=== PATIENT | male | born 1960 | race Caucasian/White ===

== ENCOUNTER 2020-12-08 15:17 | Emergency (ER) | payer OTHER ==
[~2020-12-08] VITALS: Ht 180.3 cm; Wt 127.0 kg
[2020-12-08] MEDS ORDERED: THIAMINE 100mg/ml INJ (200mg/2ml VIAL) IV ONE (17:00)
[2020-12-08] MEDS ORDERED: SODIUM CHLORIDE 0.9% 1,000 ML IV ONE ×2 (17:00)
[2020-12-08] MEDS ORDERED: LABETALOL HCL 5 MG/ML 4ML SYRINGE IV ONE (19:30)
[2020-12-08 20:35] VITALS: BP 140/88
== END 2020-12-08 22:50 | disposition home or self-care (01) ==
LOC: ER 15:17 → EDBD 15:17 → ER 22:50
DX: S02.2XXA Fracture of nasal bones, initial encounter for closed fracture (principal); I10 Essential (primary) hypertension; R78.0 Finding of alcohol in blood; V43.52XA Car driver injured in collision with other type car in traffic accident, initial encounter; Y93.89 Activity, other specified; Y92.89 Other specified places as the place of occurrence of the external cause; Y99.8 Other external cause status; Y90.7 Blood alcohol level of 200-239 mg/100 ml
CPT/HCPCS: 36415; 70450; 70486; 71045; 80320; 96361; 96374; 96375; 99285; J3411; J3490; J7030

== ENCOUNTER 2021-09-12 13:21 | Emergency (ER) | payer MEDICAID ==
[~2021-09-12] VITALS: Ht 182.9 cm; Wt 117.9 kg
[2021-09-12 14:24] VITALS: BP 150/100
[2021-09-12 15:04] LABS: Basophils # (auto) 0.1 10 ^3/uL (0-0.2); Eosinophils # (auto) 0.2 10 ^3/uL (0-0.8); Mean Corpuscular Volume 81.2 fL (80.0-100.0)
[2021-09-12 15:05] LABS: Eosinophils % (auto) 1.4 % (0.0-7.0); Hematocrit 43.1 % (41.0-53.0); Hemoglobin 14.5 g/dL (13.5-17.5); Lymphocytes # (auto) 1.7 10 ^3/uL (0.4-5.4); Lymphocytes % (auto) 15.8 % (10.0-50.0); Mean Corpuscular Hemoglobin 27.3 pg (28.0-32.0); Mean Corpuscular Hgb Conc. 33.6 g/dL (32.0-36.0); Monocytes # (auto) 0.9 10 ^3/uL (0-1.3); Monocytes % (auto) 8.8 % (0.0-12.0); Neutrophils # (auto) 7.8 10 ^3/uL (1.6-8.6); Red Blood Cells 5.31 10^6/uL (4.5-5.90); White Blood Cell 10.8 10^3/uL (4.4-10.8)
[2021-09-12 15:14] LABS: Albumin 3.9 g/dL (3.4-5.0); Potassium 4.7 mmol/L (3.5-5.1)
[2021-09-12 15:17] LABS: BUN/Creatinine Ratio 13.9; Bilirubin, Total 0.4 mg/dL (0.2-1.0); Total Protein 8.8 g/dL (6.4-8.2)
[2021-09-12 16:45] LABS: INR 1.06 (0.9-1.15)
[2021-09-12] MEDS ORDERED: HYDR-5192 EX (20:48)
== END 2021-09-12 22:13 | disposition home or self-care (01) ==
LOC: ER 13:21
DX: K92.2 Gastrointestinal hemorrhage, unspecified (principal); K85.90 Acute pancreatitis without necrosis or infection, unspecified
CPT/HCPCS: 36415; 74175; 80053; 83605; 83690; 84484; 85025; 85610; 93005

== ENCOUNTER → 2024-02-12 | Outpatient (CLI) | payer OTHER, MEDICAID ==
[~2024-02-12] MED LIST: ALBUTEROL SULF 2.5 MG/0.5ML(0.5%) NEB SOLN ONE; HYDR-5192 EX
--- NOTE | 2024-02-16 13:53 | DVHNC2 ---
Procedure - February 12, 2024 6 minute walk test interpretation. Completed 6 minutes of ambulation. Moderate reduction in distance walk. Expected heart rate achieved. No significant desaturations with exertion. YULI HODGES RESIDENT Feb 16, 2024 13:53
--- NOTE | 2024-02-16 13:56 | DVHNC2 ---
Procedure - Pulmonary function test interpretation February 12, 2024 Severe restrictive ventilatory defect. No significant bronchodilator response. Total lung capacity is 65% of predicted, below normal limits (4.62 L). Diffusion capacity is moderately reduced, not corrected for patient's hemoglobin. 59% of predicted. YULI HODGES RESIDENT Feb 16, 2024 13:56
== END | disposition home or self-care (01) ==
LOC: RT 08:11
PROVIDERS: ATTEND Internal Medicine Pulmonary Disease
DX: R06.00 Dyspnea, unspecified (principal); Z87.891 Personal history of nicotine dependence
CPT/HCPCS: 94060; 94618; 94727; 94729

== ENCOUNTER 2024-06-28 03:12 | Inpatient (IN) | payer OTHER, MEDICAID ==
[2024-06-28] VITALS (7 sets, daily range): BP systolic 119–143; BP diastolic 78–81; PULSE 17–85; RESP 16–20; TEMP 97.8–98.4; O2SAT 94–97
[~2024-06-28] VITALS: Ht 182.9 cm; Wt 126.4 kg
[~2024-06-28 03:12] MED LIST changes: -ALBUTEROL SULF 2.5 MG/0.5ML(0.5%) NEB SOLN ONE
--- NOTE | 2024-06-28 03:25 | ED.PDOC ---
History of Present Illness HPI Comments 63-year-old male with PMHx HTN brought in by EMS presents with a chief complaint of SOB and SVT. Per EMS, patient called EMS after feeling SOB for the past 20 minutes. Patient was found to be in SVT in the 160s. Per EMS, bed rubber was unable to get an IV established and instead gave 5mg Versed IM and shocked patient at 70 joules. Patient was converted to NSR. Patient was also initially hypotensive for EMS at 88/57. No other symptoms or modifying factors present at this time. 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 ) Past Medical History PAST MEDICAL HISTORY: Denies Surgical History: Denies all surgeries Family History Family History: Unknown Social History Smoker: Non-Smoker Alcohol: Occasionally Drugs: Denies Drug Use Lives In: Home Constitutional: denies: chills, diaphoresis, fatigue, fever, malaise, sweats, weakness, others EENTM: denies: blurred vision, double vision, ear bleeding, ear discharge, ear drainage, ear pain, ear ringing, eye pain, eye redness, hearing loss, mouth pain, mouth swelling, nasal discharge, nose bleeding, nose congestion, nose pain, photophobia, tearing, throat pain, throat swelling, voice changes, others Respiratory: reports: shortness of breath; denies: cough, hemoptysis, orthopnea, SOB at rest, SOB with excertion, stridor, wheezing, others Cardiovascular: denies: chest pain, dizzy spells, diaphoresis, Dyspnea on exertion, edema, irregular heart beat, left arm pain, lightheadedness, palpitations, PND, syncope, others Gastrointestinal: denies: abdomen distended, abdominal pain, blood streaked bowels, constipated, diarrhea, dysphagia, difficulty swallowing, hematemesis, melena, nausea, poor appetite, poor fluid intake, rectal bleeding, rectal pain, vomiting, others Genitourinary: denies: burning, dysuria, flank pain, frequency, hematuria, incontinence, penile discharge, penile sore, pain, testicle pain, testicle swelling, urgency, others Neurological: denies: dizziness, fainting, headache, left sided numbness, left sided weakness, numbness, paresthesia, pre-existing deficit, right sided numbness, right sided weakness, seizure, speech problems, tingling, tremors, weakness, others Musculoskeletal: denies: back pain, gout, joint pain, joint swelling, muscle pain, muscle stiffness, neck pain, others Integumetry: denies: bruises, change in color, change in hair/nails, dryness, laceration, lesions, lumps, rash, wounds, others Allergic/Immunocompromised: denies: Difficulty Healing, Frequent Infections, Hives, Itching, others Hematologic/Lymphatic: denies: anemia, blood clots, easy bleeding, easy bruising, swollen glands, others Endocrine: denies: excessive hunger, excessive sweating, excessive thirst, excessive urination, flushing, intolerance to cold, intolerance to heat, unexplained weight gain, unexplained weight loss, others Psychiatric: denies: anxiety, bipolar disorder, depression, hopeless, panic disorder, schizophrenia, sleepless, suicidal, others All Other Systems: Reviewed and Negative Physical Exam General Appearance: No Apparent Distress, Normal HEENT: Normal ENT Inspection, Pharynx Normal, TMs Normal Neck: Full Range of Motion, Non-Tender, Normal, Normal Inspection Respiratory: Chest Non-Tender, Lungs Clear, No Accessory Muscle Use, No Respiratory Distress, Normal Breath Sounds Cardiovascular: No Edema, No JVD, No Murmur, No Gallop, Normal Peripheral Pulses, Regular Rate/Rhythm Breast Exam: Deferred Gastrointestinal: No Organomegaly, Non Tender, No Pulsatile Mass, Normal Bowel Sounds, Soft Genitalia: Deferred Pelvic: Deferred Rectal: Deferred Extremities: No calf tenderness, Normal capillary refill, Normal inspection, Normal range of motion, Non-tender, No pedal edema Musculoskeletal : Apperance: Normal Neurologic: Alert, side gluer II-XII nml as Tested, No Motor Deficits, Normal Affect, Normal Mood, No Sensory Deficits Cerebellar Function: Normal Reflexes: Normal Skin: Dry, Normal Color, Warm Lymphatic: No Adenopathy Was a procedure done? Was a procedure done?: No Differential Dx Considerations may include: ACS, cardiac arrhythmia, electrolyte abnormality, infectious etiology X-Ray, Labs, Meds, VS Vital Signs Date Time Temp Pulse Resp B/P (MAP) Pulse Ox O2 Delivery O2 Flow Rate FiO2 06/28/24 03:51 98.9 98 18 105/66 (79) 96 98.9 06/28/24 03:24 98.3 98 14 112/72 (85) 94 98.3 06/28/24 03:15 99 Lab Test 06/28/24 04:32 06/28/24 03:29 Range/Units Troponin I High Sensitivity 15 10 </=54 ng/L White Blood Count 6.4 4.4-10.8 10^3/uL Red Blood Count 4.26 L 4.5-5.90 10^6/uL Hemoglobin 8.3 L 13.5-17.5 g/dL Hematocrit 27.7 L 41.0-53.0 % Mean Corpuscular Volume 64.9 L 80.0-100.0 fL Mean Corpuscular Hemoglobin 19.6 L 28.0-32.0 pg Mean Corpuscular Hemoglobin Concent 30.1 L 32.0-36.0 g/dL Red Cell Distribution Width 19.5 H 11.8-14.3 % Platelet Count 266 140-450 10^3/uL Mean Platelet Volume 7.4 6.9-10.8 fL Neutrophils (%) (Auto) 70.2 37.0-80.0 % Lymphocytes (%) (Auto) 13.9 10.0-50.0 % Monocytes (%) (Auto) 12.6 H 0.0-12.0 % Eosinophils (%) (Auto) 2.7 0.0-7.0 % Basophils (%) (Auto) 0.6 0.0-2.0 % Neutrophils # (Auto) 4.5 1.6-8.6 10 ^3/uL Lymphocytes # (Auto) 0.9 0.4-5.4 10 ^3/uL Monocytes # (Auto) 0.8 0-1.3 10 ^3/uL Eosinophils # (Auto) 0.2 0-0.8 10 ^3/uL Basophils # (Auto) 0 0-0.2 10 ^3/uL Nucleated Red Blood Cells 0.3 % Platelet Estimate Adequate Hypochromasia (manual) Moderate Microcytosis Moderate Stomatocytes Few Sodium Level 132 L 136-145 mmol/L Potassium Level 4.0 3.5-5.1 mmol/L Chloride Level 102 98-107 mmol/L Carbon Dioxide Level 17 L 20-31 mmol/L Anion Gap 13 5-15 Blood Urea Nitrogen 18 9-23 mg/dL Creatinine 1.69 H 0.700-1.30 mg/dL Glomerular Filtration Rate Calc 46 >90 mL/min BUN/Creatinine Ratio 10.7 10.0-20.0 Serum Glucose 127 H 74-106 mg/dL Calcium Level 8.5 L 8.7-10.4 mg/dL B-Type Natriuretic Peptide 28.19 0-100 pg/mL Time of 1ST Reevaluation: 03:50 Reevaluation 1ST: Unchanged Patient Education/Counseling: Diagnosis, Treatment Family Education/Counseling: No Family Present Departure 1 Departure Time of Disposition: 05:04 (Patient went to SVT and was shocked out of it by the paramedics. Patient is feeling significantly better however is very tired after the Versed. We will admit patient for further workup and expert consultation) Impression: Primary Impression: SVT (supraventricular tachycardia) Additional Impressions: Shortness of breath Chest pain Qualified Codes: R07.9 - Chest pain, unspecified Disposition: ADMITTED INPATIENT Admit to: Med Surg Condition: Serious Critical Care Note Critical Care Time?: Yes Critical care comment: Shortness of breath Authorized and Performed by: Ky Jackson MD Total critical care time: Approximately 33 minutes Due to a high probability of clinically significant, life threatening deterioration, the patient required my highest level of preparedness to intervene emergently and I personally spent this critical care time directly and personally managing the patient. This critical care time included obtaining a h istory; examining the patient; pulse oximetry; ordering and review of studies; arranging urgent treatment with development of a management plan; evaluation of patient's response to treatment; frequent reassessment; and, discussions with other providers. This critical care time was performed to assess and manage the high probability of imminent, life-threatening deterioration that could result in multi-organ failure. It was exclusive of separately billable procedures and treating other patients and teaching time. Please see my other sections and the rest of the note for further information on patient assessment and treatment. Stability Stability form required: No I personally scribed for KY JACKSON MD ([email or web address]) on 06/28/24 at 03:25. Electronically submitted by Bhavesh Batista ([email or web address]). KY JACKSON MD Jun 28, 2024 03:25
[2024-06-28 03:40] LABS: Eosinophils # (auto) 0.2 10 ^3/uL (0-0.8); Hematocrit 27.7 % (41.0-53.0); Hemoglobin 8.3 g/dL (13.5-17.5); Lymphocytes # (auto) 0.9 10 ^3/uL (0.4-5.4); Monocytes # (auto) 0.8 10 ^3/uL (0-1.3); Red Blood Cells 4.26 10^6/uL (4.5-5.90); White Blood Cell 6.4 10^3/uL (4.4-10.8)
[2024-06-28 03:42] LABS: Basophils # (auto) 0 10 ^3/uL (0-0.2); Basophils % (auto) 0.6 % (0.0-2.0); Eosinophils % (auto) 2.7 % (0.0-7.0); Lymphocytes % (auto) 13.9 % (10.0-50.0); Mean Corpuscular Hemoglobin 19.6 pg (28.0-32.0); Mean Corpuscular Hgb Conc. 30.1 g/dL (32.0-36.0); Mean Corpuscular Volume 64.9 fL (80.0-100.0); Monocytes % (auto) 12.6 % (0.0-12.0); Neutrophils # (auto) 4.5 10 ^3/uL (1.6-8.6); Neutrophils % (auto) 70.2 % (37.0-80.0); Nucleated Red Blood Cells % 0.3 %; Platelet Count (auto) 266 10^3/uL (140-450); Red Cell Distribution Width 19.5 % (11.8-14.3)
[2024-06-28 03:49] LABS: Chloride 102 mmol/L (98-107)
[2024-06-28 03:50] LABS: Anion Gap 13 (5-15)
[2024-06-28 03:55] LABS: BUN/Creatinine Ratio 10.7 (10.0-20.0); Blood Urea Nitrogen 18 mg/dL (9-23)
[2024-06-28 03:56] LABS: Calcium 8.5 mg/dL (8.7-10.4); Carbon Dioxide 17 mmol/L (20-31); Glucose 127 mg/dL (74-106); Sodium 132 mmol/L (136-145)
[2024-06-28 04:33] LABS: Platelet Estimate Adequate; Stomatocytes Few
[2024-06-28 04:34] LABS: Hypochromia Moderate
--- NOTE | 2024-06-28 04:42 | DVH ---
CHEST RADIOGRAPH Indication: sob Technique: Single frontal view of the chest was obtained Comparison: CHEST PORTABLE on DOS: 12/08/20 FINDINGS: Lines and Tubes: None Lungs: No focal consolidation. Pleura: No effusion. No pneumothorax. Cardiomediastinal contours: Unremarkable Bones: No acute osseous abnormality. IMPRESSION: 1. No acute cardiopulmonary disease.
[2024-06-28] MEDS ORDERED: LISI10TA34 PO (07:29)
[2024-06-28] MEDS ORDERED: FENO145T27 PO (07:29)
[2024-06-28] MEDS ORDERED: LOSA100T33 PO (07:29)
[2024-06-28] MEDS ORDERED: PANT40T PO (07:29)
[2024-06-28] MEDS ORDERED: ACETAMINOPHEN 325 MG TAB PO PRN (07:30)
[2024-06-28] MEDS ORDERED: MORPHINE SULFATE INJ 2 MG/ml SYRG IV PRN (07:30)
[2024-06-28] MEDS ORDERED: NITROGLYCERIN 0.4 MG SL TAB SL PRN (07:30)
[2024-06-28] MEDS ORDERED: ONDANSETRON HCL 4 MG/2 ML VIAL IV PRN (07:30)
[2024-06-28] MEDS ORDERED: HYDROcodone-ACET 5/325MG TAB PO PRN (07:30)
[2024-06-28] MEDS ORDERED: DOCUSATE SOD 100 MG CAP PO PRN (07:30)
[2024-06-28] MEDS ORDERED: chlordiazePOXIDE HCL 25 MG CAP PO SCH (08:00)
--- NOTE | 2024-06-28 08:13 | DVHHP2 ---
History of Present Illness Reason for Visit: Shortness of breath History of Present Illness Magan Austin is a 63-year-old male with past medical history of chronic back pain, hypertension, and hyperlipidemia, who came in for shortness of breath secondary to SVT. Patient states he was awoken due to his shortness of breath. He noticed his heart rate was also fast. He tried deep breathing and other techniques to try and slow his heart rate without any success. EMS was called. When EMS arrived, he was in SVT, and hypotensive. They were unable to start an IV so IM versed was given and patient was cardioverted. Patient went into SR after 1 shock. Patient states he has been experiencing SVT and shortness of german ath for about 1 year. He states he has been following with cardiology and pulmonology outpatient and has not been able to get it under control. He states he use to be very active, but has been more sedentary trying to control his heart rate. Patient is anemic, states he was pooping blood, but that he followed up a GI doctor, had a colonoscopy and it improved, but did not completely go away. Patient also complains of his abdomen being more distended than normal, and becoming very firm and bloated after eating or drinking minimal amounts. Cardiovascular: HTN, hyperipidemia Musculoskeletal: Chronic low back pain Past Surgical History: Other (stomach ulcer, back surgery) Family History: None Smoke: No ALCOHOL: heavy (6 beers/day) Drugs: None Lives: with Family Domestic Violence: Neg Review of Systems Constitutional: No: Fever, Chills, Sweats, Weakness, Malaise, Other Eyes: No: Pain, Vision change, Conjunctivae inflammation, Eyelid inflammation, Other, Redness ENT: No: Ear pain, Ear discharge, Nose pain, Nose discharge, Nose congestion, Mouth pain, Mouth swelling, Throat pain, Throat swelling, Other Respiratory: Shortness of breath, SOB with excertion; No: Cough, Dry, Wheezing, Hemoptysis, Pleuritic Pain, Sputum, Wheezing, Other Cardiovascular: Palpitations; No: Chest Pain, Orthopnea, Paroxysmal Noc. Dyspn ea, Edema, Lt Headedness, Other Gastrointestinal: Abdominal Pain; No: Nausea, Vomiting, Diarrhea, Constipation, Melena, Hematochezia, Other Genitourinary: No Dysuria, No Frequency, No Incontinence, No Hematuria, No Retention, No Other Musculoskeletal: No: other, neck pain, shoulder pain, arm pain, back pain, hand pain, leg pain, foot pain Skin: No: Rash, Lesions, Jaundice, Bruising, Other Neurological: No: Weakness, Numbness, Incoordination, Change in speech, Confusion, Seizures, Other Allergies: Coded Allergies: NO KNOWN ALLERGIES (Unverified , 09/04/11) Exam Vital Signs Vital Signs Date Time Temp Pulse Resp B/P (MAP) Pulse Ox O2 Delivery O2 Flow Rate FiO2 06/28/24 06:30 83 18 108/65 (79) 95 06/28/24 05:08 Room Air* 0 21 06/28/24 03:51 98.9 98.9 General Appearance: Alert, Oriented X3, Cooperative, mild distress HEENT: Atraumatic, PERRLA, Mucous membr. moist/pink Respiratory: Clear to auscultation, Normal air movement Cardiovascular: Regular rate, Normal S1, Normal S2, No murmurs Abdominal: Normal bowel sounds, No tenderness, Other (firm, distended) Extremities: No clubbing, No cyanosis, No edema, Normal pulses Skin: No rashes, No breakdown, No significant lesion Neuro: Normal gait, Normal speech, Strength at 5/5 X4 ext Psych/Mental Status: Mental status NL, Mood NL Labs/Xrays Labs Test 06/28/24 06:39 06/28/24 03:29 Range/Units White Blood Count 6.4 4.4-10.8 10^3/uL Red Blood Count 4.26 L 4.5-5.90 10^6/uL Hemoglobin 8.3 L 13.5-17.5 g/dL Hematocrit 27.7 L 41.0-53.0 % Mean Corpuscular Volume 64.9 L 80.0-100.0 fL Mean Corpuscular Hemoglobin 19.6 L 28.0-32.0 pg Mean Corpuscular Hemoglobin Concent 30.1 L 32.0-36.0 g/dL Red Cell Distribution Width 19.5 H 11.8-14.3 % Platelet Count 266 140-450 10^3/uL Mean Platelet Volume 7.4 6.9-10.8 fL Neutrophils (%) (Auto) 70.2 37.0-80.0 % Lymphocytes (%) (Auto) 13.9 10.0-50.0 % Monocytes (%) (Auto) 12.6 H 0.0-12.0 % Eosinophils (%) (Auto) 2.7 0.0-7.0 % Basophils (%) (Auto) 0.6 0.0-2.0 % Neutrophils # (Auto) 4.5 1.6-8.6 10 ^3/uL Lymphocytes # (Auto) 0.9 0.4-5.4 10 ^3/uL Monocytes # (Auto) 0.8 0-1.3 10 ^3/uL Eosinophils # (Auto) 0.2 0-0.8 10 ^3/uL Basophils # (Auto) 0 0-0.2 10 ^3/uL Nucleated Red Blood Cells 0.3 % Platelet Estimate Adequate Hypochromasia (manual) Moderate Microcytosis Moderate Stomatocytes Few Sodium Level 132 L 136-145 mmol/L Potassium Level 4.0 3.5-5.1 mmol/L Chloride Level 102 98-107 mmol/L Carbon Dioxide Level 17 L 20-31 mmol/L Anion Gap 13 5-15 Blood Urea Nitrogen 18 9-23 mg/dL Creatinine 1.69 H 0.700-1.30 mg/dL Glomerular Filtration Rate Calc 46 >90 mL/min BUN/Creatinine Ratio 10.7 10.0-20.0 Serum Glucose 127 H 74-106 mg/dL Calcium Level 8.5 L 8.7-10.4 mg/dL B-Type Natriuretic Peptide 28.19 0-100 pg/mL CHEST RADIOGRAPH FINDINGS: Lines and Tubes: None Lungs: No focal consolidation. Pleura: No effusion. No pneumothorax. Cardiomediastinal contours: Unremarkable Bones: No acute osseous abnormality. IMPRESSION: 1. No acute cardiopulmonary disease. Assessment/Plan Assessment/Plan Assessment: SVT (supraventricular tachycardia), Abdominal Pain, Anemia, ETOH dependance, Hypertension, Hyperlipidemia, Chronic Pain, Plan: Admit to Tele, Cardiology consulted, Continuos EKG monitoring, ECHO, CT abdomen/pelvis, Tapering Librium started, Home medications reconciled, home BP medications held due to low BP, Plan discussed with: Patient My Orders Orders - HUE VALENTINE Procedure Category Date Status Time Admit ADMIT 06/28/24 Verified 07:17 Code Status CODE 06/28/24 Verified 07:17 Hydrocodone-Acet PHA 06/28/24 Verified 5/325mg Tab (Crewe 07:30 Ondansetron Hcl PHA 06/28/24 Verified (Zofran) 07:30 Docusate Sodium PHA 06/28/24 Verified Capsule (Colace 07:30 Complete Blood Count LAB 06/29/24 Verified 04:00 Comprehensive LAB 06/29/24 Verified Metabolic Panel 04:00 Cardiac DIET 06/28/24 Verified Diet-2gna,Lofat,Lochol Breakfast Condition: Serious JORDON 06/28/24 Verified 07:17 Acetaminophen Tablet PHA 06/28/24 Verified (Tylenol Tablet) 07:30 Nitroglycerin PHA 06/28/24 Verified Sublingual (Ntrostat 07:30 Morphine Sulfate PHA 06/28/24 Verified Injection 07:30 Stat Ekg For Chest BANNER 06/28/24 Verified Pain 07:17 Notify Md Of Changes BANNER 06/28/24 Verified From Base 07:17 Stitching Machine Feeder Or Offbearer For BANNER 06/28/24 Verified 24 Hours 07:17 Emergency Dysrhythmia BANNER 06/28/24 Verified Protocol 07:17 Rhythm Strips Once BANNER 06/28/24 Verified Every Shift 07:17 Oxygen By Nasal RT 06/28/24 Verified Cannula 07:17 * Cardiology Consult CONS 06/28/24 Verified 07:17 Date of Service: Jun 28, 2024 Billing Provider: HUE VALENTINE Common Visit Codes: [id number] INP/OBS CARE (MOD) HUE VALENTINE Jun 28, 2024 08:13
--- NOTE | 2024-06-28 09:01 | DVH ---
Exam: CT CT AB PEL WO CON-NO ORAL OR IV History: abdominal distention Comparison Study: None available at time of dictation. Technique: Multidetector spiral CT of the abdomen and pelvis was performed from lung bases to pubic s ymphysis. Imaging was performed without intravenous contrast. Coronal and sagittal multiplanar reform ats were obtained from the axial data set by the technologist. Radiation Dose : 1. Abdomen/Pelvis: CTDIvol 27.1 mGy, DLP 1633.7 mGy*cm. Findings: Evaluation of vasculature and solid organs is limited due to lack of intravenous contrast use. Lung Bases: Lung bases are clear. Visualized portions of the heart and pericardium are unremarkable. Liver: The liver is normal in size. No focal lesions. Diffusely hypoattenuating liver parenchyma con sistent with hepatic steatosis. Gallbladder and Biliary Tree: The gallbladder is surgically absent. No intrahepatic or extrahepatic b iliary ductal dilatation. Spleen: No splenic enlargment or mass. 1.6 cm splenic artery aneurysm. Pancreas: The pancreas is grossly unremarkable. Adrenal Glands: Unremarkable Kidneys: Kidneys are unremarkable without calculi or hydronephrosis. GI tract: There are postsurgical changes in the stomach. No evidence of small bowel wall thickening o r abnormal dilatation to suggest bowel obstruction. Postsurgical changes in the small ruchi. There ar e fluid filled small bowel loops. The colon is unremarkable. The appendix is not visualized, however no inflammatory changes in the right lower quadrant to suggest acute appendicitis. Peritoneum/mesentery/retroperitoneum. No evidence of free intraperitoneal air. No ascites. No evidenc e of suspicious lymphadenopathy. Abdominal Wall: Unremarkable. Vasculature: The visualized abdominal aorta is normal in size and caliber. Evaluation of abdominal a nd pelvic vessels is limited due to lack of intravenous contrast. Urinary Bladder: Grossly unremarkable for degree of distention. Pelvic Organs: Unremarkable Musculoskeletal: No aggressive focal bony lesions, acute fractures or dislocation. IMPRESSION: 1. Fluid-filled small bowel loops which are nonspecific however may reflect a mild degree of enteriti s. No bowel obstruction.
--- NOTE | 2024-06-28 09:48 | DVHINCON2 ---
Date Seen: Jun 28, 2024 Referring Physician SACHA Villa Reason for Consultation SVT History of Present Illness This is a 63-year-old man who presented to the emergency room via EMS with a chief complaint of shortness of breath. The patient reports he had just woken up with shortness of breath associated with a sensation of substernal chest discomfort described as "fire" prompting him to call 911. Upon EMS arrival he was found in a supraventricular tachycardia rhythm in the 160s bpm with an associated systolic blood pressure in the 80s mmHg and unsuccessful IV access. The patient was medicated with versed IM and underwent DCCV at 70J with successful transition into a normal sinus rhythm. Per patient, he has had similar episodes for the past year. He saw Dr. Valentine as outpatient undergoing a transthoracic echocardiogram, chemical induced stress test, and subsequent cardiac catheterization without catheter based intervention given normal coronaries at [facility] on 01/2024. He is not sure if he also underwent an event monitor. Significant medical history includes hypertension, dyslipidemia, prediabetes mellitus, chronic kidney disease, peripheral neuropat hy with right footdrop, and alcohol dependence including 6-8 beers on daily basis. Past Medical History Past medical history reviewed. No other significant than mentioned above. Past Surgical History Ulcer with partial gastrectomy Spinal surgery, 2022 Tonsillectomy at 5 y.o. Family History Family history reviewed. Mother with CVA. Social History Denies the use of illicit drugs or tobacco use. Admits to daily alcohol use, 6-8 beers per day. Allergies: Coded Allergies: NO KNOWN ALLERGIES (Unverified , 09/04/11) Home Meds Active Scripts Hydrocortisone (Topical) (Preparation H) 1 % Cre, 1 % EX DAILY for 20 Days, #1 C RE Prov:RORO JACOBSON MD 09/12/21 Reported Medications Pantoprazole Sodium Sesquihydr (Pantoprazole Sodium) 40 Mg Tab, 40 MG PO BID, TAB 06/28/24 Losartan Potassium & Hydrochlo (Losartan Potassium/Hydroc) 1 Tab Tab, 1 TAB PO DAILY, #30 TAB 5 Refills 06/28/24 Lisinopril (Lisinopril) 10 Mg Tab, 10 MG PO DAILY, TAB 06/28/24 Fenofibrate (FENOFIBRATE) 145 Mg Tab, 1 TAB PO DAILY, #30 TAB 5 Refills 06/28/24 Home Meds Home medications reviewed. Current Medications Current Medications Medications (Trade) Dose Ordered Sig/[place] Route PRN Reason Start Time Stop Time Status Last Admin Acetaminophen/ Hydrocodone Bitart ([place] 5/325MG Tab) 1 tab Q4HP PRN PO MODERATE PAIN (4-6 PAIN SCALE) 06/28/24 07:30 UNV Ondansetron HCl (Zofran) 4 mg Q4HP PRN IV NAUSEA / VOMITING 06/28/24 07:30 UNV Docusate Sodium (Colace Capsule) 100 mg BIDPRN PRN PO FOR CONSTIPATION 06/28/24 07:30 UNV Acetaminophen (Tylenol Tablet) 650 mg Q6HP PRN PO PAIN SCALE 1-3 OR TEMP>100.4 06/28/24 07:30 UNV Nitroglycerin (Ntrostat Sublingual) 0.4 mg Q5MINP PRN SL FOR CHEST PAIN 06/28/24 07:30 UNV Morphine Sulfate 2 mg Q30M PRN IV FOR CHEST PAIN 06/28/24 07:30 UNV Pantoprazole Sodium (Protonix Tablet) 40 mg BID PO 06/28/24 10:00 UNV Patient Own Medication 1 tab DAILY PO 06/28/24 10:00 UNV Chlordiazepoxide HCl (Librium Capsule) 50 mg Q8H PO 06/28/24 08:00 06/29/24 00:01 UNV Chlordiazepoxide HCl (Librium Capsule) 50 mg Q12HR PO 06/29/24 10:00 06/29/24 22:01 UNV Chlordiazepoxide HCl (Librium Capsule) 25 mg Q12HR PO 06/30/24 10:00 06/30/24 22:01 UNV Chlordiazepoxide HCl (Librium Capsule) 25 mg QAM PO 07/01/24 07:00 07/01/24 07:01 UNV Review of Systems Constitutional: No symptom reported Ears, Nose, & Throat: No symptom reported Eyes: No symptom reported Neurological: No symptoms reported Pulmonary/Respiratory: SOB Cardiovascular: Chest discomfort Gastrointestinal: No symptom reported Genitourinary: No symptom reported Musculoskeletal: No symptom reported Skin: No symptom reported Psychiatric: No symptom reported Endocrine: No symptom reported Hemotologic/Lymphatic: No symptom reported Vital Signs Vital Signs Date Time Temp Pulse Resp B/P (MAP) Pulse Ox O2 Delivery O2 Flow Rate FiO2 06/28/24 08:21 86 06/28/24 08:00 16 123/79 (94) 97 06/28/24 07:30 97.6 97.6 06/28/24 07:30 Room Air* 0 21 Physical Exam General Appearance: Cooperative. Well developed. Obese. In no acute distress Head Exam: Normal inspection Neck Exam: Normal inspection. Non-tender. Normal alignment Pulmonary/Respiratory: Chest non-tender. Clear bilateral breath sounds Cardiovascular/Chest: Regular rate and rhythm. S1, S2. NSR. No murmurs. No JVD. Peripheral Pulses: 2+ Radial (R). 2+ Radial (L). 2+ Pedal (R). 2+ Pedal (L) Abdominal Exam: Normal bowel sounds. Soft. Somewhat distended Ankle Exam: Negative ankle edema Lower extremities: Negative lower extremity edema Neuro/Mental Status: A&O x4. Coherent Thoughts/Psych: Normal thought pattern. Appropriate mood and affect. Good judgement and insight Appearance: In no acute distress Skin Exam: Normal inspection. Normal color. Warm. Dry Labs/Diagnostic Data Labs Test 06/28/24 06:39 06/28/24 03:29 Range/Units Troponin I High Sensitivity 22 </=54 ng/L White Blood Count 6.4 4.4-10.8 10^3/uL Red Blood Count 4.26 L 4.5-5.90 10^6/uL Hemoglobin 8.3 L 13.5-17.5 g/dL Hematocrit 27.7 L 41.0-53.0 % Mean Corpuscular Volume 64.9 L 80.0-100.0 fL Mean Corpuscular Hemoglobin 19.6 L 28.0-32.0 pg Mean Corpuscular Hemoglobin Concent 30.1 L 32.0-36.0 g/dL Red Cell Distribution Width 19.5 H 11.8-14.3 % Platelet Count 266 140-450 10^3/uL Mean Platelet Volume 7.4 6.9-10.8 fL Neutrophils (%) (Auto) 70.2 37.0-80.0 % Lymphocytes (%) (Auto) 13.9 10.0-50.0 % Monocytes (%) (Auto) 12.6 H 0.0-12.0 % Eosinophils (%) (Auto) 2.7 0.0-7.0 % Basophils (%) (Auto) 0.6 0.0-2.0 % Neutrophils # (Auto) 4.5 1.6-8.6 10 ^3/uL Lymphocytes # (Auto) 0.9 0.4-5.4 10 ^3/uL Monocytes # (Auto) 0.8 0-1.3 10 ^3/uL Eosinophils # (Auto) 0.2 0-0.8 10 ^3/uL Basophils # (Auto) 0 0-0.2 10 ^3/uL Nucleated Red Blood Cells 0.3 % Platelet Estimate Adequate Hypochromasia (manual) Moderate Microcytosis Moderate Stomatocytes Few Sodium Level 132 L 136-145 mmol/L Potassium Level 4.0 3.5-5.1 mmol/L Chloride Level 102 98-107 mmol/L Carbon Dioxide Level 17 L 20-31 mmol/L Anion Gap 13 5-15 Blood Urea Nitrogen 18 9-23 mg/dL Creatinine 1.69 H 0.700-1.30 mg/dL Glomerular Filtration Rate Calc 46 >90 mL/min BUN/Creatinine Ratio 10.7 10.0-20.0 Serum Glucose 127 H 74-106 mg/dL Calcium Level 8.5 L 8.7-10.4 mg/dL B-Type Natriuretic Peptide 28.19 0-100 pg/mL Assessment SVT with successful DCCV, now NSR Hypertension Dyslipidemia Prediabetes Anemia CKD stage III Alcohol dependence Obesity ?LESLY Plan/Recommendation (Dr. Valentine) We will continue further cardiac evaluation with a transthoracic echocardiogram to evaluate cardiac function. In the meantime, initiate metoprolol XL and magnesium oxide. Obtain UDS and alcohol level. The patient can benefit from an outpatient event monitor. Highly suspected for obstructive sleep apnea, consider an outpatient sleep study as this could be the culprit of symptoms. He underwent a recent cardiac catheterization without catheter based intervention given normal coronaries. Strongly advised on alcohol cessation and risk factor modifications. Further orders per clinical course. Thank you for allowing us to participate in this patient's care. Please call if you have any questions or concerns. This medical document was created using an electronic medical record system with voice recognition software and computerized dictation system. Although this document has been carefully reviewed, there might still be some phonetic and typographical errors. Occasional wrong-word or ``sound-alike substitutions may have occurred due to the inherent limitations of voice recognition software. These areas are purely typographical due to imperfections of the software programs and do not reflect any compromise in the patient's medical care. Herman tucker read the chart carefully and recognize, using context, where these substitutions have occurred. Plan discussed with: Patient, Other NYHA Physical activity limitations: NA Date of Service: Jun 28, 2024 Billing Provider: JOHN CALLAWAY Cardiology Common Codes: [id number] INP/OBS CARE (High) JOHN CALLAWAY Jun 28, 2024 09:48
[2024-06-28 10:18] LABS: Magnesium 1.7 mg/dL (1.6-2.6)
--- NOTE | 2024-06-28 10:51 | DVHSR ---
APPROVED REPORT EXAM: Two-dimensional and M-mode echocardiogram with Doppler and color Doppler. Blood Pressure: 108/65 mmHg INDICATION SVT, R/O structural deficit RISK FACTORS Height: 71, Weight: 264 DIMENSIONS LVDd4.6 (3.8-5.7cm)LA (2D)4.8 (1.9-4.0cm)Aortic Root (2.0-3.7cm) LVDs3.3 (2.5-4.0cm)LA (MM) (1.9-4.0cm)Aortic Cusp Exc (1.5-2.0cm) EF (%) 55.0 (55-70%)Rt. Atrium (1.9-4.0cm)Asc. Aorta cm Mitral Valve MitralMitral Stenosis E wave0.78m/sMV Mean GR.mmHg A wave0.79m/sMV Peak GR.mmHg E/A ratio1.02D MVAcm2 DECEL [id number] 1/2 Vbvo91ry IVRTmsDop MVA3.57cm2 Aortic Valve Aortic ValveAortic Stenosis V1m/Kenneth Mean GR.10mmHg V21.89m/Kenneth Peak GR.15mmHg Pulmonic Valve V21.23m/s Other Information Technically limited study due to body habitus and patient position. Conclusion lvef 60% mild LVH normal rv functin normal atria mild aortic stenosis
[2024-06-28] MEDS: MAGNESIUM OXIDE 400 MG TAB PO ONE (11:18)
[2024-06-28] MEDS: PANTOPRAZOLE 40 MG TAB PO SCH (11:18)
[2024-06-28 11:31] LABS: Opiate Scree,Urine Neg (NEGATIVE)
[2024-06-28 11:34] LABS: Amphetamine Screen, Urine Neg (NEGATIVE); Barbiturate Scree,Urine Neg (NEGATIVE); Benzodiazephine Screen, Urine Pos (NEGATIVE); Cannabinoid Screen, Urine Neg (NEGATIVE); Cocaine Screen, Urine Neg (NEGATIVE); Phencyclidine Screen, Urine Neg (NEGATIVE)
--- NOTE | 2024-06-28 13:32 | ECG ---
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
--- NOTE | 2024-06-28 13:42 | DVHPN2 ---
Subjective Patient reporting having chest burning Reviewed: Care Plan, H&P, Labs, Medications, Previous Orders Changes from previous H/P or p: No Changes Eyes: No Pain, No Vision change, No Conjunctivae inflammation, No Eyelid inflammation, No Other, No Redness ENT: No Ear pain, No Ear discharge, No Nose pain, No Nose discharge, No Nose congestion, No Mouth pain, No Mouth swelling, No Throat pain, No Throat swelling, No Other Cardiovascular: No Chest Pain; Palpitations; No Orthopnea, No Paroxysmal Noc. Dyspnea, No Edema, No Lt Headedness, No Other Respiratory: No Cough, No Dry; Shortness of breath, SOB with excertion; No Wheezing, No Hemoptysis, No Pleuritic Pain, No Sputum, No Other Gastrointestinal: No Nausea, No Vomiting; Abdominal Pain; No Diarrhea, No Constipation, No Melena, No Hematochezia, No Other Genitourinary: No Dysuria, No Frequency, No Incontinence, No Hematuria, No Retention, No Other Musculoskeletal: No other, No neck pain, No shoulder pain, No arm pain, No back pain, No hand pain, No leg pain, No foot pain Skin: No Rash, No Lesions, No Jaundice, No Bruising, No Other Objective Vitals Vital Signs Date Time Temp Pulse Resp B/P (MAP) Pulse Ox O2 Delivery O2 Flow Rate FiO2 06/28/24 11:20 96 Room Air* 0 21 06/28/24 10:00 84 18 139/78 (98) 06/28/24 07:30 97.6 97.6 General Appearance: Alert, Oriented X3, Cooperative, mild distress HEENT: Atraumatic, PERRLA Cardiovascular: Normal S1, Normal S2 Abdomen: Normal bowel sounds, Soft, No tenderness, No hepatospenomegaly Musculoskeletal: Normal sensory function, Normal motor function Neuro: Normal gait, Normal speech, Cranial nerves 3-12 NL Skin: Dry, Intact Psych/Mental Status: Mental status NL, Mood NL Medications Current Medications Medications Dose Ordered Sig/[place] Route Start Time Stop Time Status Last Admin Dose Admin Acetaminophen/ Hydrocodone Bitart 1 tab Q4HP PRN PO 06/28/24 07:30 Ondansetron HCl 4 mg Q4HP PRN IV 06/28/24 07:30 Docusate Sodium 100 mg BIDPRN PRN PO 06/28/24 07:30 Acetaminophen 650 mg Q6HP PRN PO 06/28/24 07:30 Nitroglycerin 0.4 mg Q5MINP PRN SL 06/28/24 07:30 Morphine Sulfate 2 mg Q30M PRN IV 06/28/24 07:30 Pantoprazole Sodium 40 mg BID PO 06/28/24 10:00 06/28/24 11:18 40 MG Patient Own Medication 1 tab DAILY PO 06/28/24 10:00 Metoprolol Succinate 25 mg DAILY PO 06/28/24 10:00 Folic Acid 1 mg/ Magnesium Sulfate 8 meq/ Multivitamins 10 ml/Thiamine HCl 100 mg/Sodium Chloride 1,013.2 ml @ 126.247 mls/hr DAILY@1800 INJ 06/28/24 13:45 UNV Laboratory Results Laboratory Tests 06/28/24 03:29 Chemistry Test 06/28/24 03:29 06/28/24 06:39 Calcium Level 8.5 mg/dL (8.7-10.4) L Magnesium Level 1.7 mg/dL (1.6-2.6) Lipid panel Test 06/28/24 06:39 Cholesterol Level 159 mg/dL (< 200) HDL Cholesterol 43 mg/dL (40-59) Triglycerides Level 146 mg/dL (< 150) Cardiac Markers Test 06/28/24 03:29 B-Type Natriuretic Peptide 28.19 pg/mL (0-100) HgA1c, TSH Test 06/28/24 03:29 06/28/24 06:39 Hemoglobin A1c 6.2 % A1C (<5.7) H Thyroid Stimulating Hormone (TSH) 2.32 uIU/mL (0.55-4.78) Labs and/or images reviewed: Labs reviewed by me, Image(s) reviewed by me Assessment/Plan Assessment/Plan Impression: -SVT -alcoholism -obesity -primary hypertension -dyslipidemia -probable acute kidney injury, vasomotor nephropathy Plan: -I was called with the patient was bedside given he had a Mirena persistent symptomatic SVT, noted chest pain and shortness of breath. Patient was receive vagal maneuvers by house repairer, Farhat, with the patient converting to sinus rhythm -continue beta-jeannie therapy -patient was states he was had ischemia workup as an outpatient with Cardiology. Electrophysiology consultation placed -start banana bag -Librium p.r.n. alcohol withdrawal Critical care time spent with patient discussing and formulating plan of care: 40 minutes. This does not include time spent performing procedures. This medical document was created using an electronic medical record system with [employer] dictation system. Although this document has been carefully reviewed, there may still be some phonetic and typographical errors. These areas are purely typographical due to imperfections of the software programs, and do not reflect any compromise in the patient's medical care. Plan discussed with: Patient, Other (RN) My Orders Orders - EFREN GOFF NP Procedure Category Date Status Time *Consult Dr. Perry CONS 06/28/24 Transmitted 13:31 Banana Bag D5w PHA 06/28/24 Transmitted 13:45 Chlordiazepoxide Hcl PHA 06/28/24 Transmitted Capsule (Librium Ca 13:45 Date of Service: Jun 28, 2024 Billing Provider: EFREN GOFF NP Common Visit Codes: [id number] CARE 30-74 MIN EFREN GOFF NP Jun 28, 2024 13:42
[2024-06-28] MEDS ORDERED: FOLIC ACID 1 MG, MAGNESIUM SULF SDV 50% 8 MEQ, MULTIPLE VITAMIN 10 ML, THIAMINE INJ 100... INJ SCH ×2 (13:45→14:45)
[2024-06-28] MEDS ORDERED: chlordiazePOXIDE HCL 5 MG CAP PO PRN (13:45)
[2024-06-28] MEDS ORDERED: FOLIC ACID 1 MG, MULTIPLE VITAMIN 10 ML, MAGNESIUM SULF SDV 50% 8 MEQ, THIAMINE INJ 100... INJ SCH (13:45)
[2024-06-28] MEDS: METOPROLOL SUCCINATE XL 50 MG TAB PO SCH (14:54)
[2024-06-28] MEDS: FOLIC ACID 1 MG, MULTIPLE VITAMIN 10 ML, MAGNESIUM SULF SDV 50% 8 MEQ, THIAMINE INJ 100... INJ SCH (18:03)
[2024-06-28] MEDS: PANTOPRAZOLE 40 MG TAB PO ONE (22:49)
[2024-06-29] VITALS (9 sets, daily range): BP systolic 116–143; BP diastolic 69–92; PULSE 18–88; RESP 16–20; TEMP 97.4–98.4; O2SAT 95–97
[2024-06-29] MEDS ORDERED: ACETAMINOPHEN 325 MG TAB PO PRN (02:45)
[2024-06-29] MEDS ORDERED: NITROGLYCERIN 0.4 MG SL TAB SL PRN (02:45)
[2024-06-29] MEDS ORDERED: chlordiazePOXIDE HCL 5 MG CAP PO PRN (02:45)
[2024-06-29] MEDS ORDERED: MORPHINE SULFATE INJ 2 MG/ml SYRG IV PRN (02:45)
[2024-06-29] MEDS ORDERED: ONDANSETRON HCL 4 MG/2 ML VIAL IV PRN (02:45)
[2024-06-29] MEDS ORDERED: DOCUSATE SOD 100 MG CAP PO PRN (02:45)
[2024-06-29] MEDS: HYDROcodone-ACET 5/325MG TAB PO PRN (02:47)
--- NOTE | 2024-06-29 08:52 | DVHPN2 ---
Consult Progress Note Date Seen: Jun 29, 2024 Subjective Review of Systems: CVS:Normal, RESPIRATORY:Normal, NEURO:Normal Other Systems: Denies any active cardiac symptoms. Notified of SVT event in the ED on 06/29/24 Objective vital signs Vital Sign Date Time Temp Pulse Resp B/P (MAP) Pulse Ox O2 Delivery O2 Flow Rate FiO2 06/29/24 07:36 16 Room Air* 0 21 06/29/24 04:36 97.9 69 116/69 (85) 96 97.9 Total Intake and Output 06/28/24 06/28/24 06/29/24 15:00 23:00 07:00 Intake Total 125 ml 1100 ml Balance 125 ml 1100 ml medications Current Medications Medications Dose Ordered Sig/[place] Route Start Time Stop Time Status Last Admin Dose Admin Folic Acid 1 mg/ Magnesium Sulfate 8 meq/ Multivitamins 10 ml/Thiamine HCl 100 mg/Sodium Chloride 1,013.2 ml @ 126.247 mls/hr DAILY@1800 INJ 06/28/24 13:45 Cancel Folic Acid 1 mg/ Magnesium Sulfate 8 meq/ Multivitamins 10 ml/Thiamine HCl 100 mg/Sodium Chloride 1,013.2 ml @ 126.247 mls/hr DAILY@1800 INJ 06/28/24 14:45 UNV Acetaminophen/ Hydrocodone Bitart 1 tab Q4HP PRN PO 06/29/24 02:45 06/29/24 02:47 1 TAB Ondansetron HCl 4 mg Q4HP PRN IV 06/29/24 02:45 Docusate Sodium 100 mg BIDPRN PRN PO 06/29/24 02:45 Acetaminophen 650 mg Q6HP PRN PO 06/29/24 02:45 Nitroglycerin 0.4 mg Q5MINP PRN SL 06/29/24 02:45 Morphine Sulfate 2 mg Q30M PRN IV 06/29/24 02:45 Pantoprazole Sodium 40 mg BID PO 06/29/24 10:00 Patient Own Medication 1 tab DAILY PO 06/29/24 10:00 Metoprolol Succinate 25 mg DAILY PO 06/29/24 10:00 Chlordiazepoxide HCl 10 mg Q4HPRN PRN PO 06/29/24 02:45 Folic Acid 1 mg/ Multivitamins 10 ml/Magnesium Sulfate 8 meq/ Thiamine HCl 100 mg/Dextrose 1,013.2 ml @ 125.001 mls/hr DAILY@1800 INJ 06/29/24 18:00 Examination: LUNGS:Normal, CVS:Normal (NSR. conveyor monitor do not reveal further SVT events overnight), NEURO:Normal laboratory and microbiology Laboratory Tests 06/28/24 03:29 Test 06/28/24 03:29 Range/Units Serum Glucose 127 H 74-106 mg/dL Problem List/Assessment/Plan Problem List/Assessment/Plan SVT with successful DCCV, now NSR Hypertension Dyslipidemia Prediabetes Anemia CKD stage III Alcohol dependence Obesity ?LESLY Plan/Recommendation (Dr. Valentine) Transthoracic echocardiogram revealed LVEF 60% with mild LVH. He underwent a recent cardiac catheterization without catheter based intervention given normal coronaries. Continue metoprolol XL and magnesium oxide. Given recurrent episodes of SVT, initiate low-dose Flecainide and follow EP recommendations. Replete electrolytes as necessary, potassium >4 and magnesium >2. The patient can benefit from an outpatient event monitor and outpatient sleep study, highly suspected for LESLY which could be the culprit of symptoms. Strongly advised on alcohol cessation, weight loss, diet, exercise, and risk factor modifications. There is no further cardiac work-up indicated at this time. Kindly call if in need to re-consult. Thank you for allowing us to participate in this patient's care. This medical document was created using an electronic medical record system with voice recognition software and computerized dictation system. Although this document has been carefully reviewed, there might still be some phonetic and typographical errors. Occasional wrong-word or ``sound-alike substitutions may have occurred due to the inherent limitations of voice recognition software. These areas are purely typographical due to imperfections of the software programs and do not reflect any compromise in the patient's medical care. Please read the chart carefully and recognize, using context, where these substitutions have occurred. Plan discussed with: Patient, Other Date of Service: Jun 29, 2024 Billing Provider: JOHN CALLAWAY Cardiology Common Codes: [id number] HOSP CARE([facility] JOHN CALLAWAY Jun 29, 2024 08:52
[2024-06-29 09:52] LABS: Anion Gap 6 (5-15); Carbon Dioxide 25 mmol/L (20-31); Chloride 102 mmol/L (98-107); Potassium 4.2 mmol/L (3.5-5.1); Sodium 133 mmol/L (136-145)
[2024-06-29 09:53] LABS: Calcium 9.3 mg/dL (8.7-10.4)
[2024-06-29 09:56] LABS: Basophils # (auto) 0 10 ^3/uL (0-0.2); Basophils % (auto) 0.3 % (0.0-2.0); Eosinophils # (auto) 0.2 10 ^3/uL (0-0.8); Eosinophils % (auto) 3.1 % (0.0-7.0); Hematocrit 27.4 % (41.0-53.0); Hemoglobin 8.4 g/dL (13.5-17.5); Lymphocytes # (auto) 0.8 10 ^3/uL (0.4-5.4); Lymphocytes % (auto) 12.3 % (10.0-50.0); Mean Corpuscular Hemoglobin 19.9 pg (28.0-32.0); Mean Corpuscular Hgb Conc. 30.5 g/dL (32.0-36.0); Mean Corpuscular Volume 65.1 fL (80.0-100.0); Monocytes # (auto) 0.4 10 ^3/uL (0-1.3); Monocytes % (auto) 6.5 % (0.0-12.0); Neutrophils # (auto) 4.8 10 ^3/uL (1.6-8.6); Neutrophils % (auto) 77.8 % (37.0-80.0); Nucleated Red Blood Cells % 0.1 %; Platelet Count (auto) 269 10^3/uL (140-450); Red Blood Cells 4.21 10^6/uL (4.5-5.90); Red Cell Distribution Width 19.7 % (11.8-14.3); White Blood Cell 6.2 10^3/uL (4.4-10.8)
[2024-06-29 09:58] LABS: BUN/Creatinine Ratio 13.9 (10.0-20.0); Blood Urea Nitrogen 21 mg/dL (9-23); Glucose 200 mg/dL (74-106); Magnesium 1.9 mg/dL (1.6-2.6)
[2024-06-29] MEDS ORDERED: chlordiazePOXIDE HCL 25 MG CAP PO SCH (10:00)
[2024-06-29] MEDS: MAGNESIUM OXIDE 400 MG TAB PO SCH (10:36)
[2024-06-29] MEDS: PANTOPRAZOLE 40 MG TAB PO SCH (10:36)
[2024-06-29] MEDS: METOPROLOL SUCCINATE XL 50 MG TAB PO SCH (10:37)
[2024-06-29] MEDS: FLECAINIDE ACETATE 50 MG TAB PO SCH (10:37)
--- NOTE | 2024-06-29 13:20 | DVHPN2 ---
Subjective Patient denies any symptoms at this time. Reviewed: Care Plan, H&P, Labs, Medications, Previous Orders Changes from previous H/P or p: Changes Eyes: No Pain, No Vision change, No Conjunctivae inflammation, No Eyelid inflammation, No Other, No Redness ENT: No Ear pain, No Ear discharge, No Nose pain, No Nose discharge, No Nose congestion, No Mouth pain, No Mouth swelling, No Throat pain, No Throat swelling, No Other Cardiovascular: No Chest Pain; Palpitations; No Orthopnea, No Paroxysmal Noc. Dyspnea, No Edema, No Lt Headedness, No Other Respiratory: No Cough, No Dry; Shortness of breath, SOB with excertion; No Wheezing, No Hemoptysis, No Pleuritic Pain, No Sputum, No Other Gastrointestinal: No Nausea, No Vomiting; Abdominal Pain; No Diarrhea, No Constipation, No Melena, No Hematochezia, No Other Genitourinary: No Dysuria, No Frequency, No Incontinence, No Hematuria, No Retention, No Other Musculoskeletal: No other, No neck pain, No shoulder pain, No arm pain, No back pain, No hand pain, No leg pain, No foot pain Skin: No Rash, No Lesions, No Jaundice, No Bruising, No Other Objective Vitals Vital Signs Date Time Temp Pulse Resp B/P (MAP) Pulse Ox O2 Delivery O2 Flow Rate FiO2 06/29/24 10:37 78 117/72 06/29/24 09:00 98.1 19 96 98.1 06/29/24 07:36 Room Air* 0 21 Intake/Output Intake and Output 06/29/24 07:00 Intake Total 1225 ml Balance 1225 ml Intake Oral 1100 ml IV Total 125 ml # Voids 12 # Bowel Movements 7 General Appearance: Alert, Oriented X3, Cooperative, mild distress HEENT: Atraumatic, PERRLA Cardiovascular: Normal S1, Normal S2 Abdomen: Normal bowel sounds, Soft, No tenderness, No hepatospenomegaly Musculoskeletal: Normal sensory function, Normal motor function Neuro: Normal gait, Normal speech, Cranial nerves 3-12 NL Skin: Dry, Intact Psych/Mental Status: Mental status NL, Mood NL Medications Current Medications Medications Dose Ordered Sig/[place] Route Start Time Stop Time Status Last Admin Dose Admin Folic Acid 1 mg/ Magnesium Sulfate 8 meq/ Multivitamins 10 ml/Thiamine HCl 100 mg/Sodium Chloride 1,013.2 ml @ 126.247 mls/hr DAILY@1800 INJ 06/28/24 13:45 Cancel Folic Acid 1 mg/ Magnesium Sulfate 8 meq/ Multivitamins 10 ml/Thiamine HCl 100 mg/Sodium Chloride 1,013.2 ml @ 126.247 mls/hr DAILY@1800 INJ 06/28/24 14:45 UNV Acetaminophen/ Hydrocodone Bitart 1 tab Q4HP PRN PO 06/29/24 02:45 06/29/24 02:47 1 TAB Ondansetron HCl 4 mg Q4HP PRN IV 06/29/24 02:45 Docusate Sodium 100 mg BIDPRN PRN PO 06/29/24 02:45 Acetaminophen 650 mg Q6HP PRN PO 06/29/24 02:45 Nitroglycerin 0.4 mg Q5MINP PRN SL 06/29/24 02:45 Morphine Sulfate 2 mg Q30M PRN IV 06/29/24 02:45 Pantoprazole Sodium 40 mg BID PO 06/29/24 10:00 06/29/24 10:36 40 MG Patient Own Medication 1 tab DAILY PO 06/29/24 10:00 Metoprolol Succinate 25 mg DAILY PO 06/29/24 10:00 06/29/24 10:37 25 MG Chlordiazepoxide HCl 10 mg Q4HPRN PRN PO 06/29/24 02:45 Folic Acid 1 mg/ Multivitamins 10 ml/Magnesium Sulfate 8 meq/ Thiamine HCl 100 mg/Dextrose 1,013.2 ml @ 125.001 mls/hr DAILY@1800 INJ 06/29/24 18:00 Flecainide Acetate 50 mg Q12HR PO 06/29/24 10:00 06/29/24 10:37 50 MG Magnesium Oxide 400 mg DAILY PO 06/29/24 10:00 06/29/24 10:36 400 MG Laboratory Results Laboratory Tests 06/29/24 09:23 Chemistry Test 06/29/24 09:23 Calcium Level 9.3 mg/dL (8.7-10.4) Magnesium Level 1.9 mg/dL (1.6-2.6) Coagulation Test 06/29/24 09:23 D-Dimer, Quantitative 0.70 mg/L FEU (0.0-0.49) H Labs and/or images reviewed: Labs reviewed by me, Image(s) reviewed by me Assessment/Plan Assessment/Plan Impression: -SVT -alcoholism -obesity -primary hypertension -dyslipidemia -probable acute kidney injury, vasomotor nephropathy Plan: Events: No events overnight. EP consultation placed. Discussed case. -antiarrhythmics per Cardiology/EP -patient was states he was had ischemia workup as an outpatient with Cardiology. Electrophysiology consultation placed Continue banana bag, electrolyte replacement as needed -Librium p.r.n. alcohol withdrawal Total time spent with patient discussing and formulating plan of care: 35 minutes. This medical document was created using an electronic medical record system with [employer] dictation system. Although this document has been carefully reviewed, there may still be some phonetic and typographical errors. These areas are purely typographical due to imperfections of the software programs, and do not reflect any compromise in the patient's medical care. Plan discussed with: Patient, Other (RN) My Orders Orders - EFREN GOFF NP Procedure Category Date Status Time *Consult Dr. Perry CONS 06/28/24 Transmitted 13:31 Chlordiazepoxide Hcl PHA 06/29/24 In Process Capsule (Librium Ca 02:45 Folic Acid... PHA 06/29/24 In Process 18:00 Date of Service: Jun 29, 2024 Billing Provider: EFREN GOFF NP Common Visit Codes: [id number] INP/OBS CARE(HIGH) EFREN GOFF NP Jun 29, 2024 13:20
[2024-06-29] MEDS ORDERED: MAGNESIUM OXIDE 400 MG TAB PO ONE (15:45)
[2024-06-29] MEDS ORDERED: FOLIC ACID 1 MG TAB PO ONE (15:45)
[2024-06-29] MEDS ORDERED: THIAMINE HCL 100 MG TAB PO ONE (15:45)
[2024-06-29] MEDS ORDERED: MULTIPLE VITAMIN TAB PO ONE (15:45)
[2024-06-29] MEDS: THIAMINE HCL 100 MG TAB PO ONE (16:56)
[2024-06-29] MEDS: MULTIPLE VITAMIN TAB PO ONE (16:56)
[2024-06-29] MEDS: FOLIC ACID 1 MG TAB PO ONE (16:56)
[2024-06-29] MEDS ORDERED: FOLIC ACID 1 MG, MULTIPLE VITAMIN 10 ML, MAGNESIUM SULF SDV 50% 8 MEQ, THIAMINE INJ 100... INJ SCH (18:00)
--- NOTE | 2024-06-29 20:06 | DVHINCON2 ---
Date of service: Jun 29, 2024 Referring Physician Magan López Reason for Consultation Evaluation for Potential Ablation History of Present Illness This is a 63-year old male known outside to Dr. Valentine who initially presented with reported shortness of breath that had awoken him from his sleep with associated substernal chest discomfort prompting EMS evaluation. Upon EMS arrival, the patient was reportedly found to be hemodynamically unstable which EKG tracing from the event had revealed a presence of a narrow complex tachycardia with a ventricular rate of 159bpm for which the patient underwent subsequent cardioversion utilizing 70J. Upon ED arrival, initial 12-lead electrocardiogram had revealed sinus rhythm at 99bpm with no acute ischemic changes. Initial HS troponin level was found to be 10, with subsequent repeat of 15, and 22. Electrolytes (potassium/magnesium) were found within normal range. D-Dimer was found elevated at 0.70. Echocardiogram (06/28/2024) revealed a preserved LVEF of 60% with mild left ventricular hypertrophy. Of note, patient did undergo previous cardiac catheterization (10/05/2024 [facility]) revealing no warranted coronary revascularization. At present, patient underwent subsequent evaluation by Interventional Cardiology services and had been started on Metoprolol Succinate 12.5mg once daily in addition to Flecainide 50mg twice daily. At present time of consultation, denies any active chest pain, shortness of breath, palpitations, dizziness, syncope, orthopnea, or any further cardiac related symptoms. As the patient was found to have a narrow complex tachycardia, Electrophysiology services were involved by primary team request for EP aspects of care. Past Medical History Reviewed Past Surgical History Reviewed Allergies: Coded Allergies: NO KNOWN ALLERGIES (Unverified , 09/04/11) Home Meds Active Scripts Hydrocortisone (Topical) (Preparation H) 1 % Cre, 1 % EX DAILY for 20 Days, #1 CRE Prov:RORO JACOBSON MD 09/12/21 Reported Medications Pantoprazole Sodium Sesquihydr (Pantoprazole Sodium) 40 Mg Tab, 40 MG PO BID, TAB 06/28/24 Losartan Potassium & Hydrochlo (Losartan Potassium/Hydroc) 1 Tab Tab, 1 TAB PO DAILY, #30 TAB 5 Refills 06/28/24 Lisinopril (Lisinopril) 10 Mg Tab, 10 MG PO DAILY, TAB 06/28/24 Fenofibrate (FENOFIBRATE) 145 Mg Tab, 1 TAB PO DAILY, #30 TAB 5 Refills 06/28/24 Current Medications Current Medications Medications (Trade) Dose Ordered Sig/[place] Route PRN Reason Start Time Stop Time Status Last Admin Chlordiazepoxide HCl (Librium Capsule) 50 mg Q12HR PO 06/29/24 10:00 06/28/24 13:37 DC Chlordiazepoxide HCl (Librium Capsule) 25 mg Q12HR PO 06/30/24 10:00 06/28/24 13:37 DC Chlordiazepoxide HCl (Librium Capsule) 25 mg QAM PO 07/01/24 07:00 06/28/24 13:37 DC Acetaminophen/ Hydrocodone Bitart ([place] 5/325MG Tab) 1 tab Q4HP PRN PO MODERATE PAIN (4-6 PAIN SCALE) 06/29/24 02:45 06/29/24 02:47 Ondansetron HCl (Zofran) 4 mg Q4HP PRN IV NAUSEA / VOMITING 06/29/24 02:45 Docusate Sodium (Colace Capsule) 100 mg BIDPRN PRN PO FOR CONSTIPATION 06/29/24 02:45 Acetaminophen (Tylenol Tablet) 650 mg Q6HP PRN PO PAIN SCALE 1-3 OR TEMP>100.4 06/29/24 02:45 Nitroglycerin (Ntrostat Sublingual) 0.4 mg Q5MINP PRN SL FOR CHEST PAIN 06/29/24 02:45 Morphine Sulfate 2 mg Q30M PRN IV FOR CHEST PAIN 06/29/24 02:45 Pantoprazole Sodium (Protonix Tablet) 40 mg BID PO 06/29/24 10:00 06/29/24 10:36 Patient Own Medication 1 tab DAILY PO 06/29/24 10:00 Metoprolol Succinate (Toprol Xl) 25 mg DAILY PO 06/29/24 10:00 06/29/24 10:37 Chlordiazepoxide HCl (Librium Capsule) 10 mg Q4HPRN PRN PO ALCOHOL WITHDRAWAL SYMPTOMS 06/29/24 02:45 Folic Acid 1 mg/ Multivitamins 10 ml/Magnesium Sulfate 8 meq/ Thiamine HCl 100 mg/Dextrose 1,013.2 ml @ 125.001 mls/hr DAILY@1800 INJ 06/29/24 18:00 06/29/24 15:37 DC Flecainide Acetate (Tambocor Tablet) 50 mg Q12HR PO 06/29/24 10:00 06/29/24 10:37 Magnesium Oxide (Mag-Ox Tablet) 400 mg DAILY PO 06/29/24 10:00 06/29/24 15:39 DC 06/29/24 10:36 Folic Acid 1 mg DAILY PO 06/30/24 10:00 Multivitamins (Mvi Tab) 1 tab DAILY PO 06/30/24 10:00 Magnesium Oxide (Mag-Ox Tablet) 400 mg DAILY PO 06/30/24 10:00 Thiamine HCl 100 mg DAILY PO 06/30/24 10:00 Review of Systems A 14-point review of systems is negative unless otherwise noted above Vital Signs Vital Signs Date Time Temp Pulse Resp B/P (MAP) Pulse Ox O2 Delivery O2 Flow Rate FiO2 06/29/24 17:00 97.4 88 17 143/88 (106) 95 97.4 06/29/24 07:36 Room Air* 0 21 Physical Exam Heart: S1 and S2 regular. The patient is in sinus rhythm. Lungs: Clear to auscultation Abdomen: Benign. Extremities: Distal pulses palpable, 2+. No evidence for peripheral edema Labs/Diagnostic Data Labs Test 06/29/24 09:23 06/28/24 07:00 06/28/24 06:39 06/28/24 03:29 Range/Units White Blood Count 6.2 4.4-10.8 10^3/uL Red Blood Count 4.21 L 4.5-5.90 10^6/uL Hemoglobin 8.4 L 13.5-17.5 g/dL Hematocrit 27.4 L 41.0-53.0 % Mean Corpuscular Volume 65.1 L 80.0-100.0 fL Mean Corpuscular Hemoglobin 19.9 L 28.0-32.0 pg Mean Corpuscular Hemoglobin Concent 30.5 L 32.0-36.0 g/dL Red Cell Distribution Width 19.7 H 11.8-14.3 % Platelet Count 269 140-450 10^3/uL Mean Platelet Volume 7.5 6.9-10.8 fL Neutrophils (%) (Auto) 77.8 37.0-80.0 % Lymphocytes (%) (Auto) 12.3 10.0-50.0 % Monocytes (%) (Auto) 6.5 0.0-12.0 % Eosinophils (%) (Auto) 3.1 0.0-7.0 % Basophils (%) (Auto) 0.3 0.0-2.0 % Neutrophils # (Auto) 4.8 1.6-8.6 10 ^3/uL Lymphocytes # (Auto) 0.8 0.4-5.4 10 ^3/uL Monocytes # (Auto) 0.4 0-1.3 10 ^3/uL Eosinophils # (Auto) 0.2 0-0.8 10 ^3/uL Basophils # (Auto) 0 0-0.2 10 ^3/uL Nucleated Red Blood Cells 0.1 % D-Dimer, Quantitative 0.70 H 0.0-0.49 mg/L FEU Sodium Level 133 L 136-145 mmol/L Potassium Level 4.2 3.5-5.1 mmol/L Chloride Level 102 98-107 mmol/L Carbon Dioxide Level 25 20-31 mmol/L Anion Gap 6 5-15 Blood Urea Nitrogen 21 9-23 mg/dL Creatinine 1.51 H 0.700-1.30 mg/dL Glomerular Filtration Rate Calc 52 >90 mL/min BUN/Creatinine Ratio 13.9 10.0-20.0 Serum Glucose 200 H 74-106 mg/dL Calcium Level 9.3 8.7-10.4 mg/dL Magnesium Level 1.9 1.6-2.6 mg/dL Urine Opiates Screen Neg NEGATIVE Urine Fentanyl Screen Neg NEGATIVE Urine Barbiturates Screen Neg NEGATIVE Urine Phencyclidine Screen Neg NEGATIVE Urine Amphetamines Screen Neg NEGATIVE Urine Benzodiazepines Screen Pos NEGATIVE Urine Cocaine Screen Neg NEGATIVE Urine Cannabinoids Screen Neg NEGATIVE Troponin I High Sensitivity 22 </=54 ng/L Triglycerides Level 146 < 150 mg/dL Cholesterol Level 159 < 200 mg/dL LDL Cholesterol 102 H < 100 mg/dL HDL Cholesterol 43 40-59 mg/dL Thyroid Stimulating Hormone (TSH) 2.32 0.55-4.78 uIU/mL Platelet Estimate Adequate Hypochromasia (manual) Moderate Microcytosis Moderate Stomatocytes Few Hemoglobin A1c 6.2 H <5.7 % A1C B-Type Natriuretic Peptide 28.19 0-100 pg/mL Plasma/Serum Blood Alcohol 78.1 H <10 mg/dL Plan/Recommendation ASSESSMENT: This is a 63-year old male known outside to Dr. Valentine who initially presented with reported shortness of breath that had awoken him from his sleep with associated substernal chest discomfort prompting EMS evaluation. Upon EMS arrival, the patient was reportedly found to be hemodynamically unstable which EKG tracing from the event had revealed a presence of a narrow complex tachycardia with a ventricular rate of 159bpm for which the patient underwent subsequent cardioversion utilizing 70J. Upon ED arrival, initial 12-lead electrocardiogram had revealed sinus rhythm at 99bpm with no acute ischemic changes. Initial HS troponin level was found to be 10, with subsequent repeat of 15, and 22. Electrolytes (potassium/magnesium) were found within normal range. D-Dimer was found elevated at 0.70. Echocardiogram (06/28/2024) revealed a preserved LVEF of 60% with mild left ventricular hypertrophy. Of note, patient did undergo previous cardiac catheterization (10/05/2024 [facility]) revealing no warranted coronary revascularization. At present, patient underwent subsequent evaluation by Interventional Cardiology services and had been started on Metoprolol Succinate 12.5mg once daily in addition to Flecainide 50mg twice daily. At present time of consultation, telemetry reveals normal sinus rhythm. Denies any active chest pain, shortness of breath, palpitations, dizziness, syncope, orthopnea, or any further cardiac related symptoms. As the patient was found to have a narrow complex tachycardia, Electrophysiology services were involved by primary team request for EP aspects of care. Narrow complex tachycardia, status post successful cardioversion Abnormal D-Dimer (0.70), rule out PE/DVT Questionable concern for underlying LESLY Pre-diabetes mellitus Alcohol dependence Renal insufficiency Morbid obesity Hyperlipidemia Hypertension ELECTROPHYSIOLOGY SUGGESTIONS FOR MANAGEMENT: Recommend VQ scan to rule out pulmonary embolism Recommend BLE Venous Duplex to rule out deep vein thrombosis Recommend trial of non-invasive medical management as patient denies previous use of beta-jeannie therapy As such, to proceed with beta-jeannie therapy at max tolerated dose during the interim Will need to follow up with primary [employer] team member for further event monitoring Ok to proceed with Magnesium oxide therapy during the interim Proceed with close rate and rhythm surveillance Sustain Magnesium level greater than 2.0 Sustain Potassium level greater than 4.0 Follow up renal function and electrolytes Proceed with close hemodynamic surveillance Proceed with optimized blood pressure control Transfuse to sustain HGB level above 7.0 Management in telemetry Remainder of cardiac management as per primary cardiology All available diagnostic labs, EKG's, and images were personally reviewed Patient's status, findings, and plan of care was reviewed and discussed with supervising physician Dr. Perry, who is in agreement with current plan of care. Plan of care discussed with and agreed upon by patient / family / primary RN Prognosis: Guarded Thank you for allowing me to participate in the care of this patient. Further recommendations based on patients clinical course and progression, primary attending, and other consultants. Will continue to follow with primary attending. If you have any questions or concerns, please do not hesitate to contact me. A total of 75 minutes was spent reviewing the patient record, examining the patient, making a diagnostic and therapeutic plan, discussing this plan with medical personnel, following up on diagnostic studies and following the patient for clinical stability excluding any and all procedures. At least 50% of this time was spent in direct, [id number] contact. Plan discussed with: Other (Patient, primary rn, family ) KIM DIXON MICROFILM CLERK Jun 29, 2024 20:06
--- NOTE | 2024-06-29 20:26 | DVH ---
Bilateral lower extremity venous duplex Clinical History: r/o dvt Comparison: None Technique: Duplex Doppler evaluation of the deep venous systems of both lower extremities from the common femora l veins to the popliteal veins including color Doppler and spectral/pulsed waveform analysis was perf ormed. Findings: RIGHT SIDE: The common femoral vein demonstrates appropriate compressibility and waveform variability. There is compressibility/patency of the great saphenous vein at the proximal thigh. There is non comp ressibility of great saphenous vein in the calf. The femoral vein demonstrates appropriate compressibility and waveform variability. The deep femoral vein demonstrates appropriate compressibility and waveform variability. The popliteal vein demonstrates appropriate compressibility and waveform variability. There is normal compressibility at the tibioperoneal trunk. LEFT SIDE: The common femoral vein demonstrates appropriate compressibility and waveform variability. There is compressibility/patency of the great saphenous vein at the proximal thigh. The femoral vein demonstrates appropriate compressibility and waveform variability. The deep femoral vein demonstrates appropriate compressibility and waveform variability. The popliteal vein demonstrates appropriate compressibility and waveform variability. There is normal compressibility at the tibioperoneal trunk. Impression: No evidence of right or left femoropopliteal venous thrombosis. Non compressibility of right great sa phenous vein in the calf consistent with superficial thrombus.
[2024-06-29] MEDS ORDERED: PREG50CA80 PO (23:50)
[2024-06-30] VITALS (8 sets, daily range): BP systolic 109–135; BP diastolic 63–91; PULSE 65–87; RESP 17–20; TEMP 97.6–98.3; O2SAT 91–98
[2024-06-30] MEDS: THIAMINE HCL 100 MG TAB PO SCH (09:13)
[2024-06-30] MEDS: MULTIPLE VITAMIN TAB PO SCH (09:14)
[2024-06-30] MEDS: MAGNESIUM OXIDE 400 MG TAB PO SCH (09:14)
[2024-06-30] MEDS: FOLIC ACID 1 MG TAB PO SCH (09:14)
[2024-06-30] MEDS ORDERED: chlordiazePOXIDE HCL 25 MG CAP PO SCH (10:00)
--- NOTE | 2024-06-30 14:54 | DVH ---
CLINICAL INFORMATION: 63 years old, Male; PULMONARY EMBOLISM. TECHNIQUE: 7 mCi of Xenon-133 gas was used for the ventilation portion of the exam. Posterior ventil ation imaging was obtained. 4.5 mCi of technetium 99m MAA was used for the perfusion portion of the e xam. Imaging was obtained in multiple planes of projection. COMPARISON: Chest radiograph dated 06/28/2024. FINDINGS: Perfusion imaging shows no mismatched segmental or subsegmental segmental defects. Ventilation imaging shows no defects. There is normal washout. IMPRESSION: 1. Normal exam. No evidence of pulmonary embolism.
--- NOTE | 2024-06-30 15:48 | DVHPN2 ---
Subjective Patient denies any symptoms at this time. Reviewed: Care Plan, H&P, Labs, Medications, Previous Orders Changes from previous H/P or p: No Changes Eyes: No Pain, No Vision change, No Conjunctivae inflammation, No Eyelid inflammation, No Other, No Redness ENT: No Ear pain, No Ear discharge, No Nose pain, No Nose discharge, No Nose congestion, No Mouth pain, No Mouth swelling, No Throat pain, No Throat swelling, No Other Cardiovascular: No Chest Pain; Palpitations; No Orthopnea, No Paroxysmal Noc. Dyspnea, No Edema, No Lt Headedness, No Other Respiratory: No Cough, No Dry; Shortness of breath, SOB with excertion; No Wheezing, No Hemoptysis, No Pleuritic Pain, No Sputum, No Other Gastrointestinal: No Nausea, No Vomiting; Abdominal Pain; No Diarrhea, No Constipation, No Melena, No Hematochezia, No Other Genitourinary: No Dysuria, No Frequency, No Incontinence, No Hematuria, No Retention, No Other Musculoskeletal: No other, No neck pain, No shoulder pain, No arm pain, No back pain, No hand pain, No leg pain, No foot pain Skin: No Rash, No Lesions, No Jaundice, No Bruising, No Other Objective Vitals Vital Signs Date Time Temp Pulse Resp B/P (MAP) Pulse Ox O2 Delivery O2 Flow Rate FiO2 06/30/24 13:00 98.1 66 19 134/89 (104) 96 98.1 06/30/24 08:05 Room Air* 0 21 Intake/Output Intake and Output 06/30/24 07:00 Intake Total 2065 ml Balance 2065 ml Intake Oral 2065 ml # Voids 11 # Bowel Movements 6 General Appearance: Alert, Oriented X3, Cooperative, mild distress HEENT: Atraumatic, PERRLA Cardiovascular: Normal S1, Normal S2 Abdomen: Normal bowel sounds, Soft, No tenderness, No hepatospenomegaly Musculoskeletal: Normal sensory function, Normal motor function Neuro: Normal gait, Normal speech, Cranial nerves 3-12 NL Skin: Dry, Intact Psych/Mental Status: Mental status NL, Mood NL Medications Current Medications Medications Dose Ordered Sig/[place] Route Start Time Stop Time Status Last Admin Dose Admin Folic Acid 1 mg/ Magnesium Sulfate 8 meq/ Multivitamins 10 ml/Thiamine HCl 100 mg/Sodium Chloride 1,013.2 ml @ 126.247 mls/hr DAILY@1800 INJ 06/28/24 13:45 Cancel Folic Acid 1 mg/ Magnesium Sulfate 8 meq/ Multivitamins 10 ml/Thiamine HCl 100 mg/Sodium Chloride 1,013.2 ml @ 126.247 mls/hr DAILY@1800 INJ 06/28/24 14:45 UNV Acetaminophen/ Hydrocodone Bitart 1 tab Q4HP PRN PO 06/29/24 02:45 06/30/24 09:15 1 TAB Ondansetron HCl 4 mg Q4HP PRN IV 06/29/24 02:45 Docusate Sodium 100 mg BIDPRN PRN PO 06/29/24 02:45 Acetaminophen 650 mg Q6HP PRN PO 06/29/24 02:45 Nitroglycerin 0.4 mg Q5MINP PRN SL 06/29/24 02:45 Morphine Sulfate 2 mg Q30M PRN IV 06/29/24 02:45 Pantoprazole Sodium 40 mg BID PO 06/29/24 10:00 06/30/24 09:14 40 MG Patient Own Medication 1 tab DAILY PO 06/29/24 10:00 Metoprolol Succinate 25 mg DAILY PO 06/29/24 10:00 06/30/24 09:15 25 MG Chlordiazepoxide HCl 10 mg Q4HPRN PRN PO 06/29/24 02:45 Flecainide Acetate 50 mg Q12HR PO 06/29/24 10:00 06/30/24 09:13 50 MG Folic Acid 1 mg DAILY PO 06/30/24 10:00 06/30/24 09:14 1 MG Multivitamins 1 tab DAILY PO 06/30/24 10:00 06/30/24 09:14 1 TAB Magnesium Oxide 400 mg DAILY PO 06/30/24 10:00 06/30/24 09:14 400 MG Thiamine HCl 100 mg DAILY PO 06/30/24 10:00 06/30/24 09:13 100 MG Pregabalin 50 mg TID PO 06/30/24 22:00 Laboratory Results Laboratory Tests 06/29/24 09:23 Labs and/or images reviewed: Labs reviewed by me, Image(s) reviewed by me Assessment/Plan Assessment/Plan Impression: -SVT -alcoholism -obesity -primary hypertension -dyslipidemia -probable acute kidney injury, vasomotor nephropathy Plan: Events: No events overnight. Discussed case with Mr. Paz, PURCHASING CLERK with EP. Antiarrhythmics we will be changed to metoprolol tartrate, as well as magnesium. Plan of care discussed with the patient. Re-evaluate for discharge in a.m.. -antiarrhythmics per Cardiology/EP -patient was states he was had ischemia workup as an outpatient with Cardiology. Electrophysiology consultation placed Continue banana bag, electrolyte replacement as needed -discontinue Librium given patient has no signs of ETOH withdrawal Total time spent with patient discussing and formulating plan of care: 35 minutes. This medical document was created using an electronic medical record system with [employer] dictation system. Although this document has been carefully reviewed, there may still be some phonetic and typographical errors. These areas are purely typographical due to imperfections of the software programs, and do not reflect any compromise in the patient's medical care. Plan discussed with: Patient, Other (RN) My Orders Orders - EFREN GOFF NP Procedure Category Date Status Time Cardiac DIET 06/30/24 Transmitted Diet-2gna,Lofat,Lochol Breakfast Pregabalin Capsule PHA 06/30/24 In Process (Lyrica Capsule) 22:00 Date of Service: Jun 30, 2024 Billing Provider: EFREN GOFF NP Common Visit Codes: [id number] INP/OBS CARE(HIGH) EFREN GOFF NP Jun 30, 2024 15:48
--- NOTE | 2024-06-30 16:04 | DVHPN2 ---
Progress Note - Dictate Date Seen: Jun 30, 2024 Medical Necessity Reason Pt with a Central, PICC or Fol: No Subjective Seen and examined at the bedside. Maintaining sinus rhythm upon telemetry review. Chart reviewed. vital signs Vital Sign Date Time Temp Pulse Resp B/P (MAP) Pulse Ox O2 Delivery O2 Flow Rate FiO2 06/30/24 13:00 98.1 66 19 134/89 (104) 96 98.1 06/30/24 08:05 Room Air* 0 21 Total Intake and Output 06/29/24 06/29/24 06/30/24 15:00 23:00 07:00 Intake Total 1365 ml 700 ml Balance 1365 ml 700 ml medications Current Medications Medications Dose Ordered Sig/[place] Route Start Time Stop Time Status Last Admin Dose Admin Folic Acid 1 mg/ Magnesium Sulfate 8 meq/ Multivitamins 10 ml/Thiamine HCl 100 mg/Sodium Chloride 1,013.2 ml @ 126.247 mls/hr DAILY@1800 INJ 06/28/24 13:45 Cancel Folic Acid 1 mg/ Magnesium Sulfate 8 meq/ Multivitamins 10 ml/Thiamine HCl 100 mg/Sodium Chloride 1,013.2 ml @ 126.247 mls/hr DAILY@1800 INJ 06/28/24 14:45 UNV Acetaminophen/ Hydrocodone Bitart 1 tab Q4HP PRN PO 06/29/24 02:45 06/30/24 09:15 1 TAB Ondansetron HCl 4 mg Q4HP PRN IV 06/29/24 02:45 Docusate Sodium 100 mg BIDPRN PRN PO 06/29/24 02:45 Acetaminophen 650 mg Q6HP PRN PO 06/29/24 02:45 Nitroglycerin 0.4 mg Q5MINP PRN SL 06/29/24 02:45 Morphine Sulfate 2 mg Q30M PRN IV 06/29/24 02:45 Pantoprazole Sodium 40 mg BID PO 06/29/24 10:00 06/30/24 09:14 40 MG Patient Own Medication 1 tab DAILY PO 06/29/24 10:00 Folic Acid 1 mg DAILY PO 06/30/24 10:00 06/30/24 09:14 1 MG Multivitamins 1 tab DAILY PO 06/30/24 10:00 06/30/24 09:14 1 TAB Magnesium Oxide 400 mg DAILY PO 06/30/24 10:00 06/30/24 09:14 400 MG Thiamine HCl 100 mg DAILY PO 06/30/24 10:00 06/30/24 09:13 100 MG Pregabalin 50 mg TID PO 06/30/24 22:00 Metoprolol Tartrate 25 mg BID PO 06/30/24 22:00 UNV laboratory and microbiology Laboratory Tests 06/29/24 09:23 Test 06/29/24 09:23 Range/Units Serum Glucose 200 H 74-106 mg/dL Assessment/Plan ASSESSMENT: This is a 63-year old male known outside to Dr. Valentine who initially presented with reported shortness of breath that had awoken him from his sleep with associated substernal chest discomfort prompting EMS evaluation. Upon EMS arrival, the patient was reportedly found to be hemodynamically unstable which EKG tracing from the event had revealed a presence of a narrow complex tachycardia with a ventricular rate of 159bpm for which the patient underwent subsequent cardioversion utilizing 70J. Upon ED arrival, initial 12-lead electrocardiogram had revealed sinus rhythm at 99bpm with no acute ischemic changes. Initial HS troponin level was found to be 10, with subsequent repeat of 15, and 22. Electrolytes (potassium/magnesium) were found within normal range. D-Dimer was found elevated at 0.70. Echocardiogram (06/28/2024) revealed a preserved LVEF of 60% with mild left ventricular hypertrophy. Of note, patient did undergo previous cardiac catheterization (10/05/2024 [facility]) revealing no warranted coronary revascularization. At present, patient underwent subsequent evaluation by Interventional Cardiology services and had been started on Metoprolol Succinate 12.5mg once daily in addition to Flecainide 50mg twice daily. At present time of consultation, telemetry reveals normal sinus rhythm. Denies any active chest pain, shortness of breath, palpitations, dizziness, syncope, orthopnea, or any further cardiac related symptoms. As the patient was found to have a narrow complex tachycardia, Electrophysiology services were involved by primary team request for EP aspects of care. Narrow complex tachycardia, status post successful cardioversion Abnormal D-Dimer (0.70), PE/DVT ruled out Questionable concern for underlying LESLY Pre-diabetes mellitus Alcohol dependence Renal insufficiency Morbid obesity Hyperlipidemia Hypertension ELECTROPHYSIOLOGY SUGGESTIONS FOR MANAGEMENT: Start Metoprolol Tartrate 25mg twice daily (for now) Start Magnesium Oxide 400mg once daily as (for now) Recommend trial of non-invasive medical management as patient denies previous use of beta-jeannie therapy Patient will follow up with EP services on an outpatient basis for further event monitoring to assess potential need for ablation An appointment has been establish on 07/08/2024 for outpatient EP transition of care which he is agreeable to As such, to proceed with beta-jeannie therapy at max tolerated dose during the interim Ok to proceed with Magnesium Oxide therapy during the interim Proceed with close rate and rhythm surveillance Sustain Magnesium level greater than 2.0 Sustain Potassium level greater than 4.0 Follow up renal function and electrolytes Proceed with close hemodynamic surveillance Proceed with optimized blood pressure control Transfuse to sustain HGB level above 7.0 Management in telemetry Remainder of cardiac management as per primary cardiology EP-michaels stable, and can be managed out-patient All available diagnostic labs, EKG's, and images were personally reviewed Patient's status, findings, and plan of care was reviewed and discussed with supervising physician Dr. Perry, who is in agreement with current plan of care. Plan of care discussed with and agreed upon by patient / family / primary RN Prognosis: Guarded Thank you for allowing me to participate in the care of this patient. Further recommendations based on patients clinical course and progression, primary attending, and other consultants. Will continue to follow with primary attending. If you have any questions or concerns, please do not hesitate to contact me. A total of 75 minutes was spent reviewing the patient record, examining the patient, making a diagnostic and therapeutic plan, discussing this plan with medical personnel, following up on diagnostic studies and following the patient for clinical stability excluding any and all procedures. At least 50% of this time was spent in direct, [id number] contact. Plan discussed with: Other (Patient, primary rn, family ) Plan discussed with: Patient (Patient and primary rn ) KIM DIXON Jun 30, 2024 16:03
[2024-06-30] MEDS: PREGABALIN 25 MG CAP PO SCH (21:32)
[2024-06-30] MEDS: METOPROLOL TARTRATE 25 MG TAB PO SCH (21:32)
[2024-07-01] VITALS (7 sets, daily range): BP systolic 115–145; BP diastolic 71–93; PULSE 63–76; RESP 16–18; TEMP 36.6; O2SAT 94–100
[2024-07-01] MEDS ORDERED: chlordiazePOXIDE HCL 25 MG CAP PO SCH (07:00)
[2024-07-01] MEDS ORDERED: METO25TA5 PO (13:48)
[2024-07-01] MEDS ORDERED: MAGN400T40 PO (13:48)
--- NOTE | 2024-07-01 13:53 | DVHDS2 ---
Discharge Summary Date of Admission Jun 28, 2024 at 07:17 Date of Discharge: Jul 01, 2024 Admitting Diagnosis SVT Labs/Diagnostic Data: Laboratory Results Test 06/29/24 09:23 06/28/24 07:00 06/28/24 06:39 06/28/24 03:29 White Blood Count 6.2 10^3/uL (4.4-10.8) Red Blood Count 4.21 10^6/uL (4.5-5.90) Hemoglobin 8.4 g/dL (13.5-17.5) Hematocrit 27.4 % (41.0-53.0) Mean Corpuscular Volume 65.1 fL (80.0-100.0) Mean Corpuscular Hemoglobin 19.9 pg (28.0-32.0) Mean Corpuscular Hemoglobin Concent 30.5 g/dL (32.0-36.0) Red Cell Distribution Width 19.7 % (11.8-14.3) Platelet Count 269 10^3/uL (140-450) Mean Platelet Volume 7.5 fL (6.9-10.8) Neutrophils (%) (Auto) 77.8 % (37.0-80.0) Lymphocytes (%) (Auto) 12.3 % (10.0-50.0) Monocytes (%) (Auto) 6.5 % (0.0-12.0) Eosinophils (%) (Auto) 3.1 % (0.0-7.0) Basophils (%) (Auto) 0.3 % (0.0-2.0) Neutrophils # (Auto) 4.8 10 ^3/uL (1.6-8.6) Lymphocytes # (Auto) 0.8 10 ^3/uL (0.4-5.4) Monocytes # (Auto) 0.4 10 ^3/uL (0-1.3) Eosinophils # (Auto) 0.2 10 ^3/uL (0-0.8) Basophils # (Auto) 0 10 ^3/uL (0-0.2) Nucleated Red Blood Cells 0.1 % D-Dimer, Quantitative 0.70 mg/L FEU (0.0-0.49) Sodium Level 133 mmol/L (136-145) Potassium Level 4.2 mmol/L (3.5-5.1) Chloride Level 102 mmol/L (98-107) Carbon Dioxide Level 25 mmol/L (20-31) Anion Gap 6 (5-15) Blood Urea Nitrogen 21 mg/dL (9-23) Creatinine 1.51 mg/dL (0.700-1.30) Glomerular Filtration Rate Calc 52 mL/min (>90) BUN/Creatinine Ratio 13.9 (10.0-20.0) Serum Glucose 200 mg/dL (74-106) Calcium Level 9.3 mg/dL (8.7-10.4) Magnesium Level 1.9 mg/dL (1.6-2.6) Urine Opiates Screen Neg (NEGATIVE) Urine Fentanyl Screen Neg (NEGATIVE) Urine Barbiturates Screen Neg (NEGATIVE) Urine Phencyclidine Screen Neg (NEGATIVE) Urine Amphetamines Screen Neg (NEGATIVE) Urine Benzodiazepines Screen Pos (NEGATIVE) Urine Cocaine Screen Neg (NEGATIVE) Urine Cannabinoids Screen Neg (NEGATIVE) Troponin I High Sensitivity 22 ng/L (</=54) Triglycerides Level 146 mg/dL (< 150) Cholesterol Level 159 mg/dL (< 200) LDL Cholesterol 102 mg/dL (< 100) HDL Cholesterol 43 mg/dL (40-59) Thyroid Stimulating Hormone (TSH) 2.32 uIU/mL (0.55-4.78) Platelet Estimate Adequate Hypochromasia (manual) Moderate Microcytosis Moderate Stomatocytes Few Hemoglobin A1c 6.2 % A1C (<5.7) B-Type Natriuretic Peptide 28.19 pg/mL (0-100) Plasma/Serum Blood Alcohol 78.1 mg/dL (<10) Other Laboratory Tests 06/29/24 09:23 Brief Hx & Hospital Course: History of Present Illness Magan Austin is a 63-year-old male with past medical history of chronic back pain, hypertension, and hyperlipidemia, who came in for shortness of breath secondary to SVT. Patient states he was awoken due to his shortness of breath. He noticed his heart rate was also fast. He tried deep breathing and other techniques to try and slow his heart rate without any success. EMS was called. When EMS arrived, he was in SVT, and hypotensive. They were unable to start an IV so IM versed was given and patient was cardioverted. Patient went into SR after 1 shock. Patient states he has been experiencing SVT and shortness of breath for about 1 year. He states he has been following with cardiology and pulmonology outpatient and has not been able to get it under control. He states he use to be very active, but has been more sedentary trying to control his heart rate. Patient is anemic, states he was pooping blood, but that he followed up a GI doctor, had a colonoscopy and it improved, but did not completely go away. Patient also complains of his abdomen being more distended than normal, and becoming very firm and bloated after eating or drinking minimal amounts. Course of hospitalization: Cardiology and EP Cardiology was consulted. Patient had reproducible SVT while in the emergency room which was resolved with vagal maneuvers. Patient was found to have elevated alcohol level, with the patient was started on banana bag daily with p.r.n. Librium for signs withdrawal. Patient had no signs of alcohol withdrawal while in the hospital. Patient was started on metoprolol succinate, switched to metoprolol tartrate while in the hospital. Patient had no further runs of SVT. Patient had V/Q scan for slightly elevated D-dimer which was negative for PE. Patient was DVT study which was negative for DVT, noted superficial venous thrombosis without patient having any type of discomfort to the lower extremity. Long discussion was made with the patient regarding plan of care which includes follow up with EP as an outpatient and changing his Toprol-XL to metoprolol tartrate 25 mg p.o. b.i.d. as well as taking magnesium 400 mg p.o. daily. Patient medication reconciliation was also performed with his remainder medications which she can continue. All questions answered. Physical examination General: Alert and Oriented x3. No acute distress. Well-nourished. Obese Eyes: EOMI. Anicteric. HENT: Moist mucous membranes. Lungs: Clear to auscultation bilaterally. No accessory muscle use. Cardiovascular: Regular rate and rhythm. No murmur. No JVD. Abdomen: Soft, non-tender and non-distended. No palpable masses. Extremities: No edema. Non-tender. Skin: No rashes or lesions. Warm. Neurologic: No focal neurological deficits. CN II-XII grossly intact, but not individually tested. Psychiatric: Cooperative. Appropriate mood and affect. Total time spent with patient discussing and formulating plan of care: 35 minutes. This medical document was created using an electronic medical record system with Dragon computerized dictation system. Although this document has been carefully reviewed, there may still be some phonetic and typographical errors. These areas are purely typographical due to imperfections of the software programs, and do not reflect any compromise in the patient's medical care. Consults/Reason for consult Cardiology: SVT Electrophysiology: SVT Condition at Discharge: Fair Final Diagnosis/Problems List SVT Secondary diagnosis: -alcoholism -obesity -primary hypertension -dyslipidemia -probable acute kidney injury, vasomotor nephropathy -chronic pain management with opiate use Discharge Disposition: Home Discharge Instruct/Medications Diet: Cardiac 2g Na,low cholest Activity: No Restrictions, As Tolerated Follow Up/Referral: Follow up with Dr. Perry at established appointment Medications: Metoprolol tartrate 25 mg p.o. b.i.d. Magnesium 400 mg p.o. daily Refer to medication reconciliation for remainder of medications 36 Discharge Statement: "Patient was advised to return to the ER or call 911 if any headaches, dizziness, shortness of breath, chest pain, abdominal pain, bleeding, fevers, or worsening of medical condition. Patient was counseled about treatment plan, medications, possible side effects, patientverbalized understanding. All questions were answered to the best of my ability. This discharge took greater then 30 minutes in planning, reviewing documentation, counseling the patient, and discussing with other team members." ASSESSMENT ASSESSMENT Assessment SVT Date of Service: Jul 01, 2024 Billing Provider: EFREN GOFF NP Common Visit Codes: 50128-YPT/OBS DISCH DAY >30min EFREN GOFF NP Jul 01, 2024 13:53
== END 2024-07-01 17:02 | disposition home or self-care (01) | DRG 308 ==
LOC: ER 03:12 → EDBD 03:12 → OVERFLOW 07:17 → TELE-WESTW 14:32 → UNDODISIN 14:32
PROVIDERS: ADMIT Nurse Practitioner Acute Care; ATTEND Nurse Practitioner Acute Care
DX: I47.10 Supraventricular tachycardia, unspecified (principal); N17.0 Acute kidney failure with tubular necrosis; D64.9 Anemia, unspecified; E78.5 Hyperlipidemia, unspecified; F10.20 Alcohol dependence, uncomplicated; G47.33 Obstructive sleep apnea (adult) (pediatric); N18.30 Chronic kidney disease, stage 3 unspecified; R73.03 Prediabetes; G89.29 Other chronic pain; G62.9 Polyneuropathy, unspecified; E66.01 Morbid (severe) obesity due to excess calories; I12.9 Hypertensive chronic kidney disease with stage 1 through stage 4 chronic kidney disease, or unspecified chronic kidney disease; I95.9 Hypotension, unspecified; Z79.899 Other long term (current) drug therapy; Z82.3 Family history of stroke; Z90.3 Acquired absence of stomach [part of]; Z87.11 Personal history of peptic ulcer disease; Z68.35 Body mass index [BMI] 35.0-35.9, adult; Y90.3 Blood alcohol level of 60-79 mg/100 ml
CPT/HCPCS: 36415; 71045; 74176; 78582; 80048; 80061; 80307; 80320; 83036; 83735; 83880; 84443; 84484; 85025; 85379; 93005; 93306; 93970; 99291; G0378